=== PATIENT | female | born 1960 | race Two or more races ===

== ENCOUNTER 2024-09-17 11:14 | Inpatient (IN) | payer MEDICARE, OTHER ==
[~2024-09-17] VITALS: Ht 162.6 cm; Wt 77.1 kg
[2024-09-17 11:52] LABS: PLATELET COUNT (AUTO) 322 K/uL (150-450); RED BLOOD CELL COUNT(AUTO) 5.25 MIL/uL (4.0-5.2); RED CELL DISTRIBUTION WIDTH 15.0 % (11.5-15.0); WHITE BLOOD COUNT (AUTO) 8.9 K/uL (4.3-11.0)
[2024-09-17 12:03] LABS: APPEARANCE,URINE CLEAR (CLEAR); BLOOD, URINE NEGATIVE Ery/uL (NEGATIVE); LEUKOCYTE ESTERASE ,URINE NEGATIVE (NEGATIVE); NITRITE, URINE NEGATIVE (NEGATIVE); UGLUCOSE NEGATIVE (NEGATIVE)
[2024-09-17 12:15] LABS: CALCIUM, SERUM 9.0 mg/dL (8.5-10.1); CREATININE 0.7 mg/dL (0.6-1.3); SODIUM SERUM 143 mmol/L (136-145); UREA NITROGEN, BLOOD 12 mg/dL (7-18)
[2024-09-17 12:21] LABS: ASPARTATE AMINOTRANSFERASE 28 U/L (15-37); TOTAL PROTEIN, SERUM 7.4 g/dL (6.4-8.2)
[2024-09-17] MEDS ORDERED: LOSA100T31 PO (12:22)
[2024-09-17] MEDS ORDERED: SIMV-46 PO (12:22)
[2024-09-17] MEDS ORDERED: CLON1TAB12 PO (12:22)
[2024-09-17] MEDS ORDERED: QUET50TA PO (12:22)
[2024-09-17] MEDS ORDERED: NAPR-1009 PO (12:22)
[2024-09-17] MEDS ORDERED: ESCI10TA PO (12:22)
[2024-09-17] MEDS ORDERED: RISP2TAB85 PO (12:22)
[2024-09-17] MEDS ORDERED: HYDR-500 PO (12:22)
[2024-09-17 12:23] LABS: ALCOHOL, BLOOD < 3 mg/dL (0-10); AMPHETAMINE, URINE NEGATIVE (NEGATIVE); BARBITURATE, URINE NEGATIVE (NEGATIVE); BENZODIAZEPINE, URINE POSITIVE (NEGATIVE); CANNABINOID, URINE NEGATIVE (NEGATIVE); COCCAINE, URINE NEGATIVE (NEGATIVE); OPIATE, URINE NEGATIVE (NEGATIVE)
[2024-09-17 13:00] VITALS: BP 139/83; TEMP 97.6; O2SAT 93
[2024-09-17] MEDS: OLANZAPINE 10 MG VIAL IM ONE (14:10)
[2024-09-17 16:00] VITALS: BP 126/60; TEMP 98.2; O2SAT 97
[2024-09-17] MEDS: SIMVASTATIN 20 MG TABLET PO SCH (22:00)
[2024-09-17] MEDS ORDERED: NAPROXEN 500 MG TABLET PO PRN (22:00)
[2024-09-17] MEDS ORDERED: LORAZEPAM 0.5 MG TABLET PO PRN (22:00)
[2024-09-18] MEDS ORDERED: MAG HYDROX/AL HYDROX/SIMETH 30 ML UDC PO PRN (02:30)
[2024-09-18] MEDS ORDERED: TEMAZEPAM 7.5 MG CAPSULE PO PRN (02:30)
[2024-09-18] MEDS ORDERED: MAGNESIUM HYDROXIDE 30 ML UDC PO PRN (02:30)
[2024-09-18] MEDS: BLOOD SUGAR DIAGNOSTIC 1 EACH STRIP IN ONE (02:31)
[2024-09-18 08:00] VITALS: BP 142/94; TEMP 98.1; O2SAT 94
[2024-09-18] MEDS: LOSARTAN POTASSIUM 50 MG TABLET PO SCH (09:00)
[2024-09-18 17:00] VITALS: BP 154/85; TEMP 97.9; O2SAT 94
[2024-09-18] MEDS: LORAZEPAM 0.5 MG TABLET PO PRN (18:13)
[2024-09-18] MEDS: TEMAZEPAM 7.5 MG CAPSULE PO PRN (21:52)
[2024-09-19 07:45] LABS: CREATININE 0.7 mg/dL (0.6-1.3)
[2024-09-19 07:49] LABS: ASPARTATE AMINOTRANSFERASE 21.0 U/L (15-37); CALCIUM, SERUM 8.4 mg/dL (8.5-10.1); CREATININE 0.6 mg/dL (0.6-1.3); SODIUM SERUM 142.0 mmol/L (136-145); TOTAL PROTEIN, SERUM 6.4 g/dL (6.4-8.2); UREA NITROGEN, BLOOD 14.0 mg/dL (7-18)
[2024-09-19 07:53] LABS: LDL 86 mg/dL (0-99)
[2024-09-19] MEDS: OLANZAPINE 10 MG VIAL IM ONE (11:04)
[2024-09-19] MEDS: DIVALPROEX SODIUM 125 MG TABLET.DR PO SCH (13:00)
[2024-09-19 16:00] VITALS: BP 149/81; TEMP 97.5; O2SAT 96
[2024-09-19 20:36] VITALS: BP 128/87; TEMP 97.9; O2SAT 96
[2024-09-20 08:19] VITALS: BP 156/97; TEMP 98; O2SAT 96
[2024-09-20] MEDS: OLANZAPINE 10 MG VIAL IM ONE (13:57)
[2024-09-20] MEDS: ACETAMINOPHEN 325 MG TABLET PO PRN (15:30)
[2024-09-20 17:46] VITALS: BP 122/89; TEMP 97.8; O2SAT 97
[2024-09-20 20:43] VITALS: BP 130/88; TEMP 98.3; O2SAT 98
[2024-09-21 08:00] VITALS: BP 152/86; TEMP 98.5; O2SAT 100
[2024-09-21] MEDS: OLANZAPINE 10 MG VIAL IM ONE ×2 (09:36→12:04)
[2024-09-21 16:02] VITALS: BP 153/98; TEMP 98.8; O2SAT 98
[2024-09-21 20:08] VITALS: BP 157/84; TEMP 98; O2SAT 97
[2024-09-22 08:00] VITALS: BP 136/73; TEMP 97.9; O2SAT 96
[2024-09-22] MEDS: LORAZEPAM INJ 2 MG/ML VIAL IM ONE (10:31)
[2024-09-22] MEDS: HALOPERIDOL LACTATE INJ 5 MG/ML VIAL IM ONE (10:31)
[2024-09-22 16:11] VITALS: BP 131/62; TEMP 97.8; O2SAT 95
[2024-09-22] MEDS: LORAZEPAM INJ 2 MG/ML VIAL IM STA (18:56)
[2024-09-22] MEDS: HALOPERIDOL LACTATE INJ 5 MG/ML VIAL IM STA (18:56)
[2024-09-22 19:59] VITALS: BP 154/92; TEMP 98.6; O2SAT 98
[2024-09-23 08:00] VITALS: BP 152/70; TEMP 97.8; O2SAT 98
[2024-09-23 16:00] VITALS: BP 136/92; TEMP 98.8; O2SAT 97
[2024-09-23 19:52] VITALS: BP 133/88; TEMP 98.3; O2SAT 97
[2024-09-23 20:00] VITALS: BP 133/88; TEMP 98.3; O2SAT 97
[2024-09-24 08:00] VITALS: BP 145/68; TEMP 98; O2SAT 95
[2024-09-24] MEDS: NICOTINE PATCH (7MG) 7 MG PATCH.TD24 TD SCH (10:01)
[2024-09-24 16:00] VITALS: BP 133/91; TEMP 98.2; O2SAT 100
[2024-09-25 08:00] VITALS: BP 150/83; TEMP 97.9; O2SAT 98
[2024-09-25 09:09] VITALS: BP 150/83
== END 2024-09-25 17:55 | disposition home or self-care (01) | DRG 885 ==
LOC: ER 11:21 → GPS 11:59
PROVIDERS: ADMIT Psychiatry & Neurology Psychosomatic Medicine; ATTEND Nurse Practitioner Family
DX: F29 Unspecified psychosis not due to a substance or known physiological condition (principal); Z59.00 Homelessness unspecified; I10 Essential (primary) hypertension; F20.9 Schizophrenia, unspecified; Z88.2 Allergy status to sulfonamides; F39 Unspecified mood [affective] disorder; Z73.6 Limitation of activities due to disability; Z20.822 Contact with and (suspected) exposure to COVID-19
CPT/HCPCS: 36415; 70450-TC; 73070-TC; 80048-TC; 80053-TC; 80061-TC; 80076-TC; 82565-TC; 85025-TC; G0480; J1630; J2060; J3490